=== PATIENT | male | born 1950 | race Caucasian/White ===

== ENCOUNTER → 2017-02-06 | Outpatient (CLI) | payer MEDICARE, BC, OTHER ==
[~2017-02-06] MED LIST: ADV250INH INH; ALBU17IN INH; DRIS50002 PO; LOPE2TAB3 PO; LOSA100T36 PO; MAGN1TAB25 PO; OMEP40CA2 PO; PENT500C PO; RANI1TAB6 PO; TIOT18INH INH; TRAM50TA2 PO; VITA-130 PO; VITA100037 PO; ZALE10CA PO
--- NOTE | 2017-02-06 14:58 | REP ---
Low-dose noncontrast chest CT: Lung cancer screening study. History: Nicotine dependence, former smoker. No comparison chest CT. Comparison chest x-ray is from December 30, 2006. CT findings: The lungs are somewhat hyperinflated consistent with some degree of COPD. No pleural effusion is seen. There is some minimal pleuroparenchymal fibrosis in the left lower lobe, lingula, and right middle lobe. There is some linear pleuroparenchymal fibrosis in the right upper lobe as well. There is a somewhat rectangular 5 mm nodular opacity in the right lower lobe in the anterolateral lung gutter which merits follow-up. This is not definitely calcified. There is a 4 mm somewhat spiculated appearing nodular opacity in the right lower lobe on image #83. In the superior segment of the left lower lobe, there is a 5 mm nonsolid opacity. No other pulmonary nodule or mass lesion is seen. There is a low-density lesion visible incidentally in the right lobe of the liver measuring 3.7 cm in diameter. This is a right lobe hepatic cyst which is unchanged from 2009. Impression: Positive low-dose lung cancer screening chest CT. There are 5 mm nodular opacities in the left lower lobe and in the right lower lobe as above. 6-month followup chest CT study recommended. Signed by Carlos Mary MD 02/06/2017 04:27 P
== END ==
LOC: M RAD 12:04
PROVIDERS: ATTEND Emergency Medicine
DX: Z87.891 Personal history of nicotine dependence (principal)

== ENCOUNTER → 2017-03-18 | Outpatient (CLI) | payer MEDICARE, BC, OTHER ==
[~2017-03-18] VITALS: Ht 180.3 cm; Wt 80.7 kg
[~2017-03-18] MED LIST changes: +NS 1,000 ML IV SCH; +PROPOFOL 200 MG/20 ML VIAL As Ordered ONE
--- NOTE | 2017-03-18 10:15 | ROOR ---
Patient Name: Anam Dooley Procedure Date: 03/18/2017 9:51 AM Date of : 1950 Age: 66 Room: [facility] Gender: Male Note Status: Finalized Procedure: Colonoscopy to Anastomosis Indications: High risk colon cancer surveillance: Crohn's disease, Last colonoscopy: 2011 Providers: Dez Oneill MD Referring MD: MATT BROOKS MD Requesting Provider: Medicines: Monitored Anesthesia Care Complications: No immediate complications. Procedure: Pre-Anesthesia Assessment: - The heart rate, respiratory rate, oxygen saturations, blood pressure, adequacy of pulmonary ventilation, and response to care were monitored throughout the procedure. The Colonoscope was introduced through the anus and advanced to the cecum, identified by appendiceal orifice and ileocecal valve. The colonoscopy was performed without difficulty. The patient tolerated the procedure well. The quality of the bowel preparation was good. Findings: The perianal and digital rectal examinations were normal. Non-bleeding internal hemorrhoids were found during retroflexion. The hemorrhoids were Grade I (internal hemorrhoids that do not prolapse). There was evidence of a prior end-to-end colo-colonic anastomosis at 10 cm proximal to the anus. This was patent and was characterized by healthy appearing mucosa. There was evidence of a prior end-to-end ileo-colonic anastomosis at the hepatic flexure. This was patent and was characterized by healthy appearing mucosa. The exam was otherwise without abnormality. Impression: - Non-bleeding internal hemorrhoids. - Patent end-to-end colo-colonic anastomosis, characterized by healthy appearing mucosa. - Patent end-to-end ileo-colonic anastomosis, characterized by healthy appearing mucosa. - The examination was otherwise normal. - No specimens collected. Recommendation: - Patient has a contact number available for emergencies. The signs and symptoms of potential delayed complications were discussed with the patient. Return to normal activities tomorrow. Written discharge instructions were provided to the patient. - High fiber diet. - Discharge patient to home. - Continue present medications. - Repeat colonoscopy in 5 years for surveillance. - Return to referring physician. - The findings and recommendations were discussed with the patient's family. Dez Oneill MD Dez Oneill MD 03/18/2017 10:15:06 AM This report has been signed electronically. Number of Addenda: 0 Note Initiated On: 03/18/2017 9:51 AM Estimated Blood Loss: Estimated blood loss: none.
[2017-03-18 10:35] VITALS: BP 135/74
== END | disposition home or self-care (01) ==
LOC: M OPP 09:15
PROVIDERS: ATTEND Internal Medicine Gastroenterology
DX: Z12.11 Encounter for screening for malignant neoplasm of colon (principal); K64.0 First degree hemorrhoids; Z98.0 Intestinal bypass and anastomosis status; K50.90 Crohn's disease, unspecified, without complications; I10 Essential (primary) hypertension; M10.9 Gout, unspecified; R12 Heartburn; M19.90 Unspecified osteoarthritis, unspecified site; M54.9 Dorsalgia, unspecified; J44.9 Chronic obstructive pulmonary disease, unspecified; G47.30 Sleep apnea, unspecified; R06.83 Snoring; R06.02 Shortness of breath; N40.1 Benign prostatic hyperplasia with lower urinary tract symptoms; Z87.891 Personal history of nicotine dependence; Z79.899 Other long term (current) drug therapy
CPT/HCPCS: 99156; 99157; G0105

== ENCOUNTER 2022-08-28 09:28 | Day surgery (SDC) | payer MEDICARE, BC, OTHER ==
[~2022-08-28] VITALS: Ht 177.8 cm; Wt 80.8 kg
[~2022-08-28 09:28] MED LIST changes: +ACET-683 PO; +ALBU2.5V10 INH; -DRIS50002 PO; +DRIS50003 PO; +GARL500C2 PO; +IPRA3SP; +LOPE1CAP5 PO; -LOSA100T36 PO; +LOSA100T45 PO; -MAGN1TAB25 PO; +MAGN1TAB26 PO; +MAGN250T7 PO; +NS 1,000 ML IV ONE; -NS 1,000 ML IV SCH; -OMEP40CA2 PO; +OMEP40CA4 PO; -PROPOFOL 200 MG/20 ML VIAL As Ordered ONE; +RA T500C2 PO; +RANI-397 PO; -RANI1TAB6 PO; +TERB250T91 PO; +VENTAER INH; -VITA-130 PO; +VITA-243 PO; -VITA100037 PO; +VITA100067 PO; +VITA100093 PO
[2022-08-28] MEDS ORDERED: LIDOCAINE 2% 100MG/5ML SDV (FOR ANES.) As Ordered ONE (11:44)
[2022-08-28] MEDS ORDERED: propofoL 200 MG/20 ML VIAL As Ordered ONE (11:44)
[2022-08-28 12:25] VITALS: BP 111/80
== END 2022-08-28 12:44 | disposition home or self-care (01) ==
LOC: M OPP 09:28
PROVIDERS: ATTEND Internal Medicine Gastroenterology
DX: K50.10 Crohn's disease of large intestine without complications (principal); Z09 Encounter for follow-up examination after completed treatment for conditions other than malignant neoplasm; K64.0 First degree hemorrhoids; K57.30 Diverticulosis of large intestine without perforation or abscess without bleeding; K52.9 Noninfective gastroenteritis and colitis, unspecified; K22.89 Other specified disease of esophagus; Z79.1 Long term (current) use of non-steroidal anti-inflammatories (NSAID); Z79.51 Long term (current) use of inhaled steroids; Z79.899 Other long term (current) drug therapy; Z88.8 Allergy status to other drugs, medicaments and biological substances; Z90.49 Acquired absence of other specified parts of digestive tract; Z87.891 Personal history of nicotine dependence; Z85.46 Personal history of malignant neoplasm of prostate; Z86.19 Personal history of other infectious and parasitic diseases; I10 Essential (primary) hypertension; J44.9 Chronic obstructive pulmonary disease, unspecified; M18.9 Osteoarthritis of first carpometacarpal joint, unspecified; L60.8 Other nail disorders

== ENCOUNTER → 2023-10-16 | Outpatient (REF) | payer MEDICARE, OTHER ==
[~2023-10-16] MED LIST changes: -LOSA100T45 PO; +LOSA100T46 PO; -NS 1,000 ML IV ONE
== END ==
LOC: M LAB REF 17:09
PROVIDERS: ATTEND Internal Medicine Pulmonary Disease
DX: J43.2 Centrilobular emphysema (principal)

== ENCOUNTER → 2024-09-15 | Outpatient (REF) | payer MEDICARE, OTHER, BC ==
[~2024-09-15] MED LIST changes: -GARL500C2 PO; +GARL500C6 PO
== END ==
LOC: M LAB REF 17:31
PROVIDERS: ATTEND Internal Medicine Pulmonary Disease
DX: R91.1 Solitary pulmonary nodule (principal)

== ENCOUNTER → 2024-09-28 | Outpatient (CLI) | payer MEDICARE, BC | LOC: M PLARAD 10:09 | PROVIDERS: ATTEND Internal Medicine Pulmonary Disease | DX: R91.1 Solitary pulmonary nodule (principal) | CPT/HCPCS: 78815; A9552 ==

== ENCOUNTER → 2024-10-06 | Outpatient (CLI) | payer MEDICARE, BC ==
[~2024-10-06] MED LIST changes: +FLUT15.820 NARES; +HOME MED LIST COMPLETE! XX SCH; -IPRA3SP; +IPRA3SP NARES; +LIDOCAINE 1% MDV 20ML VIAL As Ordered ONE; +MESA400C2 PO; +SFHHYD1CR EXT
[2024-10-06 08:30] VITALS: TEMP 97.9
[2024-10-06 11:45] VITALS: BP 157/74; O2SAT 95
== END ==
LOC: M IRPRO 08:20
PROVIDERS: ATTEND Internal Medicine Pulmonary Disease
DX: R91.1 Solitary pulmonary nodule (principal); J95.811 Postprocedural pneumothorax

== ENCOUNTER → 2024-11-01 | Outpatient (CLI) | payer MEDICARE, BC ==
[~2024-11-01] MED LIST changes: +FLUT1BLS5; -HOME MED LIST COMPLETE! XX SCH; -LIDOCAINE 1% MDV 20ML VIAL As Ordered ONE; +TIOT18CA
== END ==
LOC: M ONCR 09:27
PROVIDERS: ATTEND General Practice
DX: C34.32 Malignant neoplasm of lower lobe, left bronchus or lung (principal); Z87.891 Personal history of nicotine dependence; Z79.899 Other long term (current) drug therapy; Z79.51 Long term (current) use of inhaled steroids; Z85.42 Personal history of malignant neoplasm of other parts of uterus; Z90.79 Acquired absence of other genital organ(s); Z80.42 Family history of malignant neoplasm of prostate; Z80.3 Family history of malignant neoplasm of breast; Z88.8 Allergy status to other drugs, medicaments and biological substances

== ENCOUNTER 2024-11-23 11:18 | Outpatient (RCR) | payer MEDICARE, BC ==
[~2024-11-23 11:18] MED LIST changes: -ADV250INH INH; +ADVA1AER9 INH
== END 2024-11-30 ==
LOC: M ONCR 11:18
PROVIDERS: ATTEND General Practice
DX: Z51.0 Encounter for antineoplastic radiation therapy (principal); C34.32 Malignant neoplasm of lower lobe, left bronchus or lung

== ENCOUNTER 2024-12-14 08:47 | Outpatient (RCR) | payer MEDICARE, BC | END 2024-12-31 | LOC: M ONCR 08:47 | PROVIDERS: ATTEND General Practice | DX: Z51.0 Encounter for antineoplastic radiation therapy (principal); C34.32 Malignant neoplasm of lower lobe, left bronchus or lung ==

== ENCOUNTER 2024-12-28 12:00 | Outpatient (RCR) | payer MEDICARE, BC | END 2024-12-31 | LOC: M ONCR 12:00 | PROVIDERS: ATTEND General Practice | DX: Z51.0 Encounter for antineoplastic radiation therapy (principal); C34.32 Malignant neoplasm of lower lobe, left bronchus or lung ==

== ENCOUNTER → 2025-02-10 | Outpatient (CLI) | payer MEDICARE, BC | LOC: M RAD 16:03 | PROVIDERS: ATTEND Internal Medicine Pulmonary Disease | DX: C34.32 Malignant neoplasm of lower lobe, left bronchus or lung (principal) ==

== ENCOUNTER → 2025-03-29 | Outpatient (CLI) | payer MEDICARE, BC ==
[2025-03-29 11:11] LABS: BASO # 0.1 10^3/uL (0.0-0.2); BASO % 1.4 % (0.0-1.0); EOS # 0.4 10^3/uL (0.0-0.5); EOS % 5.4 % (0.0-3.0); HEMATOCRIT 37.8 % (42.0-52.0); HEMOGLOBIN 12.7 g/dl (13.5-17.5); LYMPH # 1.3 10^3/uL (1.5-5.0); LYMPH % 18.5 % (24.0-44.0); MEAN CORPUSCULAR HEMOGLOBIN 31.4 pg (27.0-33.0); MEAN CORPUSCULAR HGB CONC 33.6 g/dl (32.0-36.5); MEAN CORPUSCULAR VOLUME 93.6 fl (80.0-96.0); MONO # 0.9 10^3/uL (0.0-0.8); MONO % 11.9 % (2.0-8.0); NEUTROPHILS # 4.5 10^3/uL (1.5-8.5); NEUTROPHILS % 62.5 % (36.0-66.0); PLATELET COUNT, AUTOMATED 312 10^3/uL (150-450); RED BLOOD COUNT 4.04 10^6/uL (4.30-6.10); WHITE BLOOD COUNT 7.2 10^3/uL (4.0-10.0)
[2025-03-29 11:41] LABS: ALBUMIN 3.6 G/DL (3.2-5.2); BILIRUBIN,TOTAL 0.4 MG/DL (0.3-1.2); CALCIUM LEVEL 9.4 MG/DL (8.3-10.6); CREATININE FOR GFR 0.98 MG/DL (0.70-1.30); GLOMERULAR FILTRATION RATE 81.4 (>42); POTASSIUM SERUM 3.3 MMOL/L (3.5-5.1)
== END ==
LOC: M ONCR 10:43
PROVIDERS: ATTEND General Practice
DX: Z08 Encounter for follow-up examination after completed treatment for malignant neoplasm (principal); Z85.118 Personal history of other malignant neoplasm of bronchus and lung; Z87.891 Personal history of nicotine dependence; Z92.3 Personal history of irradiation; Z88.8 Allergy status to other drugs, medicaments and biological substances; Z79.51 Long term (current) use of inhaled steroids; Z79.899 Other long term (current) drug therapy
CPT/HCPCS: 36415; 80053; 85025; G0463

== ENCOUNTER → 2025-09-19 | Outpatient (CLI) | payer MEDICARE, BC ==
[~2025-09-19] MED LIST changes: -RA T500C2 PO; +TURM500C10 PO; +VITA1TAB82 PO
== END ==
LOC: M RAD 11:05
PROVIDERS: ATTEND General Practice
DX: C34.32 Malignant neoplasm of lower lobe, left bronchus or lung (principal); J47.9 Bronchiectasis, uncomplicated; R91.8 Other nonspecific abnormal finding of lung field; I70.0 Atherosclerosis of aorta

== ENCOUNTER → 2025-09-26 | Outpatient (CLI) | payer MEDICARE, BC | LOC: M ONCR 10:53 | PROVIDERS: ATTEND General Practice | DX: Z08 Encounter for follow-up examination after completed treatment for malignant neoplasm (principal); Z85.118 Personal history of other malignant neoplasm of bronchus and lung; Z87.891 Personal history of nicotine dependence; Z92.3 Personal history of irradiation; Z88.8 Allergy status to other drugs, medicaments and biological substances; Z79.51 Long term (current) use of inhaled steroids; Z79.899 Other long term (current) drug therapy ==